=== PATIENT | female | born 1965 ===

== ENCOUNTER 2021-03-25 10:45 | Inpatient (IN) | payer OTHER ==
[~2021-03-25] VITALS: Ht 160 cm; Wt 73.5 kg
[2021-03-25] MEDS ORDERED: COZAAR100 MG PO (14:01)
[2021-03-25] MEDS ORDERED: SYNTHROID125 MCG PO (14:01)
[2021-03-25] MEDS ORDERED: NORVASC5 MG PO (14:02)
[2021-04-03] MEDS ORDERED: CODE1TAB37 PO (11:55)
== END 2021-04-03 12:11 | disposition home or self-care (01) | DRG 743 ==
LOC: O/R 03-31 06:00 → SURH 03-31 07:00 → OB/GYN 03-31 13:40
PROVIDERS: ADMIT Obstetrics & Gynecology; ATTEND Obstetrics & Gynecology
PROC: 0TJB8ZZ Inspection of Bladder, Via Natural or Artificial Opening Endoscopic (ICD-10-PCS; 2021-03-31)
PROC: 0UT90ZZ Resection of Uterus, Open Approach (ICD-10-PCS; principal; 2021-03-31 07:00)
DX: D25.1 Intramural leiomyoma of uterus (principal); N81.11 Cystocele, midline; D26.1 Other benign neoplasm of corpus uteri; N72 Inflammatory disease of cervix uteri